=== PATIENT | female | born 1960 | race Caucasian/White ===

== ENCOUNTER 2021-02-07 07:42 | Day surgery (SDC) | payer MEDICAID, SELFPAY ==
--- NOTE | 2021-02-06 09:09 | EKG12_ITS ---
Test Reason : PREOP Blood Pressure : / mmHG Vent. Rate : 056 BPM Atrial Rate : 056 BPM P-R Int : 178 ms QRS Dur : 080 ms QT Int : 442 ms P-R-T Axes : 059 054 042 degrees QTc Int : 426 ms Sinus bradycardia Otherwise normal ECG Confirmed by MAURICIO PERAZA, ANNE-MARIE ([id number]), news assignment editor IVY DE LA CRUZ ([id number]) on 02/07/2021 10:31:49 AM Referred By: Cuauhtemoc Chand Confirmed By:ANNE-MARIE MARTÍNEZ MD
[2021-02-06 11:07] LABS: Absolute Neutrophil Count 2.9 X10^3/uL (2.0-7.7); Basophil# 0.08 X10^3/uL; Basophil% 1.3 % (0-1); Eosinophil# 0.14 X10^3/uL; Eosinophils% 2.3 % (0-5); Hematocrit 43.2 % (37-47); Hemoglobin 14.2 g/dL (12.0-15.0); Lymphocyte % 41.8 % (19-41); Mean Corp Hgb Conc 32.9 g/dL (32-36); Mean Corpuscular Hgb 30.7 pg (27.0-32.0); Mean Corpuscular Volume 93.3 fL (81-99); Mean Platelet Vol. 9.8 fl (6.2-12.0); Monocyte# 0.48 X10^3/uL; Monocyte% 7.7 % (0-10); NRBC Flagged by Analyzer 0 % (0-5); Neutrophil # 2.91 X10^3/uL (2.7-7.7); Neutrophil % 46.7 % (47-70); Platelet Count 271 K/mm3 (150-450); RBC Distribution Width CV 12.5 % (11.6-14.6); RBC Distribution Width SD 42.8 fl (35.1-43.9); Red Blood Count 4.63 M/mm3 (4.2-5.4); White Blood Count 6.2 K/mm3 (4.4-11.0)
[2021-02-06 11:44] LABS: Anion Gap 4 (5-15); BUN 10 mg/dL (7-18); BUN/Creat Ratio 15.5 RATIO (10-20); Calcium,Total 8.8 mg/dL (8.5-10.1); Chloride 110 mmol/L (98-107); Creatinine, Serum 0.64 mg/dL (0.55-1.02); EST Glomerular Filtration Rate 99 mL/min (>60); Est Glom Filt Rate - Afr Amer 120 mL/min (>60); Glucose 86 mg/dL (74-106); Potassium 4.2 mmol/L (3.5-5.1); Sodium Level 140 mmol/L (136-145)
[2021-02-06 11:51] LABS: Thyroid Stim Hormone (TSH) 6.58 uIU/mL (0.358-3.74)
[2021-02-07 08:06] VITALS: BP 137/78; PULSE 57; RESP 16; TEMP 37; O2SAT 100; BMI 24.0
[2021-02-07] MEDS: Lactated Ringers 1,000 ML 100 ML IV ×2 (08:17→11:16)
--- NOTE | 2021-02-07 09:15 | TISS_PTH ---
PATIENT: ROSA GOEL LOC: [facility] [place] U#:[id number] AGE/SX: 60/F ROOM: RE02/07/[address]: Dr. Cuauhtemoc Chand MD : 1960 BED: DIS: 02/07/2021 SPEC #: [id number] RECD: 02/07/21 12:43 STATUS: ASHA KRAUS #: [id number] ELIUD: 02/07/21 09:[address]: Cuauhtemoc Chand DEPT: SURGICAL PATHOLOGY RECD BY: Chad Huerta ENTERED: 02/07/21 13:54 SP TYPE: Tissue Bx OTHR DR: Dr. Carlos Eduardo Freeman MD Tissues: TISSUE SURGICALLY REMOVED Procedures: Surgery Specimen Level IV HEADER OPERATION: Tympanoplasty with antrostomy, atticotomy with OCR, removal PRE-OP DIAGNOSIS: Cholesteatoma of attic right ear; vertigo; mixed conductive and sensorineural hearing loss of right ear TISSUE SUBMITTED: Cholesteatoma MICROSCOPIC DIAGNOSIS Cholesteatoma: Consistent with cholesteatoma. LEONEL:master 02/11/2021 MICROSCOPIC DESCRIPTION Slides are reviewed. GROSS DESCRIPTION Received in fixative is one container labeled with the patient's name and designated cholesteatoma. The specimen consists of multiple irregular fragments of ventura-pink to ventura-white soft tissue that in aggregate measure 1.5 x 0.5 x 0.2 cm. The specimen is totally submitted in one cassette. / LEONEL:master 02/07/21 TC:5 CPT:
[2021-02-07] MEDS: Epinephrine (1 mg/ml) 1 MG/ML VIAL (11:00)
[2021-02-07] MEDS: Lidocaine 1% /Epi 1:100 (20ml) 20 ML Vial (11:15)
[2021-02-07] MEDS: Bacitracin 500 UNITS/GM PACKET (11:15)
--- NOTE | 2021-02-07 11:21 | OP.PCM_ITS ---
Problems Associated Problem List Diagnoses (1) Cholesteatoma of attic, right ear: (2) Mixed conductive and sensorineural hearing loss, unilateral, right ear, with unrestricted hearing on the contralateral side: Report of Operation Date of Procedure: 02/07/21 Pre-Operative Diagnosis: Cholesteatoma of right middle ear, right mixed hearing loss Post-Operative Diagnosis: Cholesteatoma of the right middle ear and attic with loss of the long process of the incus and acicular discontinuity Surgery/Procedure Performed:: Right tympanoplasty with atticotomy and acicular chain reconstruction with Kostas Variac prosthesis Description of Surgical Findings:: Sarah is a 60-year-old female who presented for evaluation of a right hearing loss was identified as having a middle ear cholesteatoma by Dr. Haseeb Srivastava and was referred for surgical evaluation. CT scan of the right mastoid did show an obstructing soft tissue mass consistent with cholesteatoma involving the middle ear and acicular chain and surgical treatment was offered both for holiness of hearing as well as prevention for progression of disease and further loss of hearing or other injury to the ear or surrounding structures. The patient was agreed to proceed. The risks, alternatives, potential complications, and benefits were discussed at length and any questions answered to the patient and/or caregiver's satisfaction. Witnessed informed consent was obtained in the office, and the patient and/or caregiver was agreeable to proceed. Procedure went as follows: The operative ear had been site marked preoperativel y in accordance with the office notes patient exam and history. The patient was then placed under general anesthesia and the right ear prepped and draped in usual sterile fashion. The facial nerve monitoring electrodes were then placed in the confirmed to be operational in accordance with the manufacture's directions. The planned postauricular incision site for fascial graft harvest was then injected with 1% lidocaine with 100,000 epinephrine for a total of 4 mL. Through a #5 otic speculum the operative microscope was brought into the field and the external auditory canal and tympanic membrane visualized. There is noted to be a circular opaque mass filling the middle ear cleft. The lateral canal wall was then injected with 1% lidocaine with 100,000 epinephrine for a total of 0.5 cc. Using a round knife a vascular strip incision was then created and the skin flap developed toward the annulus. The middle ear cleft was then entered with a curved pick and the annulus elevated with the annulus elevator. Immediately underlying the tympanic membrane was a large cholesteatoma. The tympanic membrane flap was then draped anteriorly and using a #3 suction and a small curved pick the cholesteatoma sac was then freed from the middle ear cleft which was noted to extend from inferior to the long process of the malleus posteriorly eroding the long process of the incus but leaving the stapes capitulum intact. This was able to be removed in continuity working it anteriorly to posteriorly and freeing it from the middle ear cleft. Using a stapes curette the scutum was then taken down to visualize the stapes and facial recess which were noted to be free from residual disease. The chorda tympani was able to be preserved during the course of the dissection and this was left in its iliamna position. There is a small amount of granulation tissue along the stapes capitulum which was removed with a cup forceps. The remainder of the ear cleft appeared to be healthy in appearance without additional cholesteatoma. The otic speculum was then withdrawn and the microscope removed from the field. Attention was then turned to reconstruction of the ossicular chain. A 1 cm incision was then made along the tragus and a section of the tragal cartilage and perichondrium was then harvested. The overlying periosteum was then dissected free and set aside on a Kyle block for tympanic membrane reconstruction. The tragal incision was then closed with interrupted 5-0 Monocryl sutures. The harvested was cartilage then shaved thickness for use as an overlay over the titanium ossicular chain reconstruction prosthesis and cut into a rectangular shape to differentiate it from any recurrent cholesteatoma in the future. The distance from the stapes capitulum to the lateral position of the tympanic membrane was then measured and a 3.5 mm Kostas acicular chain reconstruction prosthesis was then fashioned. The otic speculum was then replaced and the operative microscope returned to the field. The ossicular chain reconstruction prosthesis then placed over the stapes capitulum with a small portion of Gelfoam material placed within the middle ear cleft to hold this in place. The rectangular shaped cartilage was then placed overlying this to prevent extrusion to the tympanic membrane and then the tympanomeatal flap then redraped posteriorly closing the incision. The previously harvested piece of perichondrium was then placed overlying this incision followed by some Gelfoam material and bacitracin ointment completing the tympanoplasty. The facial nerve monitoring wax was were then removed and the patient returned to anesthesia was revived and extubated without complication having tolerated the procedure well. Surgeon: Cuauhtemoc Chand Type of Anesthesia: General Anesthesiologist: Krishna Tyson Special Medications: none Specimen's removed: cholesteatoma right middle ear Drains: none Estimated Blood Loss (mL): 0 mL Fluids Replaced: 1300 mL Grafts/Implants Used: Kostas titanium variac PORP Complications none Admit VTE Documentation VTE Present on Admission: No VTE Mechan Device Prophylaxis: SCD's VTE Pharm Prophylaxis ordered?: No Reason prophylaxis not ordered:: Procedure Not Indicated
[2021-02-07 11:37] VITALS: BP 134/91; BP 137/78; PULSE 83; RESP 16; TEMP 36.1; O2SAT 99
--- NOTE | 2021-02-07 11:37 | PCM.DC ---
Discharge Instructions Diet Discharge Diet: No restrictions Activity Discharge Activity: Return to Normal Activity Dressing / Incision Call your doctor if your incision/area has: Continuous Slow Oozing and Foul Smelling Discharge Call your doctor if you observe: Fever of 101 or Higher and Uncontrolled pain Follow Up Care Please Follow Up With: luba When: 1 week Test Results: Test results from this visit will be discussed in further detail at your follow-up appointment, if applicable. Discharge Plan Admission Primary Reason for Your Visit: cholesteatoma right ear Attending Provider: Cuauhtemoc Chand Primary Care Provider: Carlos Eduardo Freeman Discharge Orders/Prescriptions Prescriptions: New acetaminophen 500 mg Tablet 500 mg PO Q4H PRN PRN (Reason: Pain Score 1-5/10) Qty: 0 RF: 0 Continued omeprazole 40 mg Capsule,Delayed Release(Dr/Ec) 40 mg PO DAILY RF: 0 levothyroxine 88 mcg Tablet 88 mcg PO DAILY RF: 0 prednisolone acetate 1 % Drops,Suspension 1 drp EACH EYE .4TIMES DAILY RF: 0 ciprofloxacin HCl 0.3 % Drops 1 drp RIGHT EYE .4 TIMES DAILY RF: 0 ketorolac 0.5 % Dropperette 1 drp RIGHT EYE .4 TIMES DAILY RF: 0 albuterol 90 mcg/actuation Aerosol 90 mcg INHALATION PRN PRN (Reason: COPD) RF: 0 Referrals / Follow Up: Carlos Eduardo Freeman MD [Primary Care Provider] - Disposition Discharge Orders: Discharge Patient (Routine); Ordered 02/07/21 Ordered By: Dr. Cuauhtemoc Chand
[2021-02-07 11:45] VITALS: BP 137/78; BP 142/79; PULSE 73; RESP 16; O2SAT 100
[2021-02-07 12:00] VITALS: BP 137/78; BP 144/86; PULSE 81; RESP 16; TEMP 36.6; O2SAT 100
[2021-02-07] MEDS: Acetaminophen 500 MG Tablet PO (12:53)
[2021-02-07 13:10] VITALS: BP 137/78; BP 153/74; PULSE 74; RESP 16; TEMP 36.7; O2SAT 98
== END 2021-02-07 13:29 | disposition home or self-care (01) ==
LOC: SDC 07:43 → AC 07:43
PROVIDERS: Anesthesiology; PCP Family Medicine; Referring Provider Otolaryngology; Visit Provider Otolaryngology
PROC: (CPT 69633; principal; 2021-02-07 08:45)
DX: H71.01 Cholesteatoma of attic, right ear (principal); H90.71 Mixed conductive and sensorineural hearing loss, unilateral, right ear, with unrestricted hearing on the contralateral side; J44.9 Chronic obstructive pulmonary disease, unspecified; K21.9 Gastro-esophageal reflux disease without esophagitis; M19.90 Unspecified osteoarthritis, unspecified site; F17.210 Nicotine dependence, cigarettes, uncomplicated; Z20.822 Contact with and (suspected) exposure to COVID-19; Z79.899 Other long term (current) drug therapy
CPT/HCPCS: 00120; 69633; 36415; 80048; 84443; 85025; 87426; 88305; 93005; C9803; J7120; J2405